=== PATIENT | male | born 1960 | race Caucasian/White ===

== ENCOUNTER 2018-02-18 22:33 | Emergency (ER) | payer OTHER ==
--- NOTE | 2018-02-19 05:02 | C.PDOC ---
Time Seen by Provider: 02/18/18 22:56 Chief Complaint (Nursing): Abnormal Skin Integrity Past Medical History Family History: States: Unknown Family Hx - Social History Hx Alcohol Use: No Hx Substance Use: No - Immunization History Hx Tetanus Toxoid Vaccination: No Hx Influenza Vaccination: No Hx Pneumococcal Vaccination: No Disposition - Disposition Disposition Time: 23:15 Condition: UNKNOWN - Clinical Impression Clinical Impression: Patient left without being seen
== END 2018-02-18 23:15 | disposition left against medical advice (07) ==
LOC: C.ER 22:33
DX: Z02.89 Encounter for other administrative examinations (principal); L02.611 Cutaneous abscess of right foot